=== PATIENT | female | born 1970 | race Hispanic/Latino ===

== ENCOUNTER → 2020-08-28 | Outpatient (CLI) | payer OTHER ==
--- NOTE | 2020-08-31 13:56 | SLEEPHOME ---
DIAGNOSTIC HOME SLEEP STUDY DATE: 08/28/2020 ORDERED BY: Cedric Naik M.D. Diagnostic home sleep testing was performed due to concern for the obstructive sleep apnea syndrome in this patient with a history of snoring, pulmonary hypertension, and palpitations. For testing, a nocturnal T3 respiratory monitoring device was used. Continuous record was made of pulse, oxygen saturation, air flow, chest and abdominal strain, and body position. 9 hours and 59 minutes of data were reviewed. There were 8 hours and 16 minutes marked as time in bed. During the interval marked time in bed, there were 119 respiratory events identified of 10 seconds in duration or greater for a respiratory event index of 14.4. The events were primarily obstructive. Baseline pulse rate 77. Pulse rate range 46 to 122. Baseline saturation was 93%. Saturations fell to 75%. Testing was performed in both the supine and non-supine positions. IMPRESSION: Abnormal home sleep testing, with repetitive respiratory events and oxygen desaturations to 75% with a respiratory event index of 14.4, is consistent with the obstructive sleep apnea syndrome. RECOMMENDATION: The patient should be referred for formal sleep evaluation.
== END ==
LOC: M SLEEP HO 10:32
PROVIDERS: ATTEND Internal Medicine Cardiovascular Disease
DX: R06.83 Snoring (principal); I27.20 Pulmonary hypertension, unspecified; R00.2 Palpitations